=== PATIENT | male | born 1970 | race Hispanic/Latino ===

== ENCOUNTER 2020-09-03 06:50 | Day surgery (SDC) | payer OTHER ==
[2020-08-31 11:33] LABS: CREATININE 1.1 mg/dL (0.5-1.5); POTASSIUM 4.3 mmol/L (3.5-5.1)
[2020-09-02 13:45] VITALS: BP 161/100
[2020-09-03] VITALS (18 sets, daily range): BP systolic 131–156; BP diastolic 82–100
[~2020-09-03] VITALS: Ht 182.9 cm; Wt 97.1 kg
[~2020-09-03 06:50] MED LIST: DEXL30CA3 PO; LOSA100T58 PO; METF-444 PO
[2020-09-03] MEDS ORDERED: CEFAZOLIN SODIUM 1 GM VIAL IVP ONE (08:00)
[2020-09-03] MEDS ORDERED: BUPIVACAINE/PF 0.25% 30ML VIAL IJ ONE (08:23)
[2020-09-03] MEDS ORDERED: BACITRACIN 28.4 GM OINT TP ONE (08:23)
[2020-09-03] MEDS ORDERED: SUCCINYLCHOLINE 200MG/10ML SYR ONE (08:36)
[2020-09-03] MEDS ORDERED: PROPOFOL 10 MG/ML 20ML VIAL IV ONE (08:36)
[2020-09-03] MEDS ORDERED: LIDOCAINE HCL MPF 1% 5ML VIAL ONE (08:36)
[2020-09-03] MEDS ORDERED: MIDAZOLAM HCL 1 MG/ML 2ML VIAL ONE (08:36)
[2020-09-03] MEDS ORDERED: ROCURONIUM 10MG/1ML SYR 10 MG/ML ML ONE (08:37)
[2020-09-03] MEDS ORDERED: FENTANYL CITRATE PF 50 MCG/1 ML 2ML VIAL ONE (08:37)
[2020-09-03] MEDS ORDERED: EPHEDRINE SULFATE 50 MG/ML AMPULE ONE (09:25)
[2020-09-03] MEDS ORDERED: INSULIN HUMULIN R 100 UNIT/ML 3ML ONE ×2 (09:39→09:57)
== END 2020-09-03 11:45 | disposition home or self-care (01) ==
LOC: DAH 06:50
PROVIDERS: ATTEND Urology
DX: N47.1 Phimosis (principal); Z20.822 Contact with and (suspected) exposure to COVID-19; N50.89 Other specified disorders of the male genital organs; E11.9 Type 2 diabetes mellitus without complications; M19.90 Unspecified osteoarthritis, unspecified site; E66.9 Obesity, unspecified; Z79.84 Long term (current) use of oral hypoglycemic drugs; Z79.899 Other long term (current) drug therapy
CPT/HCPCS: 36415; 54150; 80048; 82948 ×2; 93005; A6260; C9803; J0330; J0690; J1815 ×2; J2250; J2704; J3010; J3490 ×3; U0003